=== PATIENT | female | born 1990 | race African-American/Black ===

== ENCOUNTER 2022-03-21 22:36 | Emergency (ER) | payer MEDICAID ==
[~2022-03-21] VITALS: Ht 172.7 cm; Wt 63.1 kg
[2022-03-21 23:44] VITALS: BP 112/73
[2022-03-23] MEDS ORDERED: NAPR-681 MT ×3 (14:46→14:55)
[2022-03-23] MEDS ORDERED: METH-773 MT ×3 (14:46→14:55)
== END 2022-03-22 02:59 | disposition left against medical advice (07) ==
LOC: ER 22:36
DX: Z53.21 Procedure and treatment not carried out due to patient leaving prior to being seen by health care provider (principal)

== ENCOUNTER 2022-03-23 12:20 | Emergency (ER) | payer MEDICAID ==
[~2022-03-23] VITALS: Ht 170.2 cm; Wt 63.0 kg
[2022-03-23] MEDS ORDERED: KETOROLAC 60MG/2ML VIAL IM ONE (14:00)
[2022-03-23] MEDS ORDERED: NAPR-681 MT ×3 (14:46→14:55)
[2022-03-23] MEDS ORDERED: METH-773 MT ×3 (14:46→14:55)
[2022-03-23 15:37] VITALS: BP 127/76
== END 2022-03-23 15:39 | disposition home or self-care (01) ==
LOC: ER 12:27
DX: S06.890A Other specified intracranial injury without loss of consciousness, initial encounter (principal); S16.1XXA Strain of muscle, fascia and tendon at neck level, initial encounter; V43.52XA Car driver injured in collision with other type car in traffic accident, initial encounter; Y93.89 Activity, other specified; Y92.488 Other paved roadways as the place of occurrence of the external cause
CPT/HCPCS: 96372; 99283; J1885